=== PATIENT | female | born 1990 | race Two or more races ===

== ENCOUNTER 2025-02-10 18:53 | Emergency (ER) | payer MEDICAID, SELFPAY ==
[2025-02-10 18:54] VITALS: BMI 47.9
[2025-02-10 21:07] VITALS: BP 153/105; PULSE 110; RESP 18; TEMP 37.1; O2SAT 97
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
[2025-02-10 21:57] LABS: HCG Qualitative,Urine Negative
[2025-02-10] MEDS: HYDROcodone/APAP 7.5/325 TABLET 1 TAB PO (22:04)
== END 2025-02-11 00:18 | disposition home or self-care (01) ==
PROVIDERS: Physician Assistant; Emergency Provider Emergency Medicine
DX: S13.4XXA Sprain of ligaments of cervical spine, initial encounter (principal); S39.92XA Unspecified injury of lower back, initial encounter; R51.9 Headache, unspecified; V43.62XA Car passenger injured in collision with other type car in traffic accident, initial encounter
CPT/HCPCS: 70450; 72125; 72131; 81025; 99283; A9270